=== PATIENT | male | born 1985 | race Caucasian/White ===

== ENCOUNTER 2016-10-21 16:49 | Emergency (ER) | payer BC ==
[~2016-10-21] VITALS: Ht 185.4 cm; Wt 72.6 kg
[2016-10-21 16:53] VITALS: BP 130/70; PULSE 108; RESP 18; TEMP 98.3; O2SAT 100
--- NOTE | 2016-10-21 16:56 | NUR ---
Patient to ER bed 08 to gown for evaluation. Side rails up.
[2016-10-21] MEDS ORDERED: ONDANSETRON HCL 4 MG/2 ML VIAL IVP ONE (17:00)
[2016-10-21] MEDS ORDERED: DEXAMETHASONE SOD PHOSPHATE 10 MG/ML VIAL IVP ONE (17:00)
[2016-10-21] MEDS ORDERED: NACL 0.9% 1,000 ML IV ONE (17:00)
[2016-10-21] MEDS ORDERED: PROCHLORPERAZINE EDISYLATE 10 MG/2 ML VIAL IVP ONE (17:00)
[2016-10-21] MEDS ORDERED: KETOROLAC TROMETHAMINE 30 MG VIAL IVP ONE (17:00)
--- NOTE | 2016-10-21 17:15 | NUR ---
# 20 gauge angiocath placed to lac. Use of asceptic technique. Opsite placed over site. Blood return noted. Blood for lab drawn from site. Flushed with 10 cc of normal saline. No evidence of infiltration noted. Patient tolerated well.
--- NOTE | 2016-10-21 17:15 | NUR ---
ER at bedside examining patient.
[2016-10-21 17:17] LABS: BILIRUBIN,URINE 1+ (NEGATIVE); BLOOD, URINE NEGATIVE (NEGATIVE); CLARITY/URINE CLEAR (CLEAR); COLOR,URINE YELLOW (YELLOW); GLUCOSE,URINE NEGATIVE (NEGATIVE); KETONES,URINE 1+ (NEGATIVE); LEUKOCYTE ESTERASE ,URINE NEGATIVE (NEGATIVE); NITRITE, URINE NEGATIVE (NEGATIVE); PROTEIN URINE TRACE (NEGATIVE)
[2016-10-21 17:23] LABS: BACTERIA,URINE FEW /HPF (None Seen); MUCUS,URINE 1+ /LPF (None Seen); RBC,URINE 0-3 /HPF (0-3); WBC,URINE 0-3 /HPF (0-3)
--- NOTE | 2016-10-21 17:27 | NUR ---
Medicated per MD orders. IVF infusing to LAC with no s/s of infiltration at this time. No acute distress. Bed in lowest position.
--- NOTE | 2016-10-21 17:28 | NUR ---
c/o abdominal pain, nausea,vomiting since this morning 7am. a little bit diarrhea only.denies blood in urine or stool. abdominal soft,non-tender.bowel sound present.
[2016-10-21 17:30] LABS: HEMATOCRIT 50.8 % (36-54); HEMOGLOBIN 16.5 g/dL (14.0-18.0); MEAN CORPUSCULAR HEMOGLOBIN 28 pg (27-31); MEAN CORPUSCULAR HGB CONC 32 % (32-36); MEAN CORPUSCULAR VOLUME 88 fL (79.0-98.0); PLATELET COUNT (AUTO) 237 K/uL (130-430); RED BLOOD CELL COUNT(AUTO) 5.79 MIL/uL (4.2-6.2); RED CELL DISTRIBUTION WIDTH 13.4 % (9.0-15.0); WHITE BLOOD COUNT (AUTO) 11.6 K/uL (4.8-10.8)
[2016-10-21 17:35] LABS: CALCIUM 9.1 mg/dL (8.4-11.0); CREATININE 1.02 mg/dL (0.55-1.30); POTASSIUM 3.5 mmol/L (3.5-5.1)
[2016-10-21 17:40] LABS: ALBUMIN 4.1 g/dL (3.4-4.8); TOTAL BILIRUBIN 3.3 mg/dL (0.0-1.0); TOTAL PROTEIN, SERUM 7.9 g/dL (6.4-8.3)
[2016-10-21 18:24] LABS: BAND % (MANUAL) 16 % (0-6); BASOPHILS % (MANUAL) 0 % (0-2); EOSINOPHILS % (MANUAL) 0 % (0-7); LYMPHOCYTES % (MANUAL) 2 % (20-46); MONOCYTES % (MANUAL) 2 % (0-11)
[2016-10-21] MEDS ORDERED: METOCLOPRAMIDE HCL 10 MG TABLET PO ONE (19:30)
[2016-10-21] MEDS ORDERED: METOCLOPRAMIDE HCL 10 MG/2 ML VIAL IVP ONE (19:30)
[2016-10-21] MEDS ORDERED: METOCLOPRAMIDE HCL 10 MG TABLET ONE (19:45)
[2016-10-21 19:52] VITALS: BP 116/65; PULSE 74; RESP 17; TEMP 98.6; O2SAT 99
--- NOTE | 2016-10-21 19:53 | NUR ---
Patient given written and verbal discharge instructions and verbalizes understanding. ER MD discussed with patient the results and treatment provided.Patient in stable condition. ID arm band removed. IV catheter removed intact and dressing applied, no active bleeding. Rx of Zofran given. Patient educated on pain management and to follow up with PMD. Pain Scale 0/10. Opportunity for questions provided and answered.
== END 2016-10-21 19:53 | disposition home or self-care (01) ==
LOC: SED 16:49
DX: E80.6 Other disorders of bilirubin metabolism (principal); K56.7 Ileus, unspecified
CPT/HCPCS: 36415; 74176; 80053; 81000; 82150; 83690; 85007; 85027; 96361; 96374; 96375; 99285; J0780; J1100; J1885; J2405; J7030; J8597